=== PATIENT | male | born 1975 | race Caucasian/White ===

== ENCOUNTER 2018-07-21 13:10 | Inpatient (IN) | payer OTHER ==
[2018-07-21 13:46] VITALS: BMI 25.0
--- NOTE | 2018-07-21 16:39 | HP ---
CIWA Score Nausea/Vomitin-Mild Nausea/No Vomiting Muscle Tremors: 2 Anxiety: 2 Agitation: 2 Paroxysmal Sweats: 2 Orientation: 0-Oriented Tacttile Disturbances: 1-Very Mild Itch/Numbness Auditory Disturbances: 1-Very Mild Visual Disturbances: 1-Very Mild Sensitivity Headache: 2-Mild CIWA-Ar Total Score: 14 - Admission Criteria OASAS Guidelines: Admission for Medically Managed Detox: Requires at least one of the followin. CIWA greater than 12 2. Seizures within the past 24 hours 3. Delirium tremens within the past 24 hours 4. Hallucinations within the past 24 hours 5. Acute intervention needed for co occurring medical disorder 6. Acute intervention needed for co occurring psychiatric disorder 7. Severe withdrawal that cannot be handled at a lower level of care (continued vomiting, continued diarrhea, abnormal vital signs) requiring intravenous medication and/or fluids 8. Patient presents the following: Seizures, delirium tremens or hallucinations in the past 12 hours (Last seizure on 07/18/18) Admission Criteria Met: Admission criteria met Admission ROS [facility] Chief Complaint: WITHDRAWAL SYMPTOMS Allergies/Adverse Reactions: Allergies Allergy/AdvReac Type Severity Reaction Status Date / Time No Known Allergies Allergy Verified 07/21/18 16:34 History of Present Illness: 42 Y.O. MAN WITH A HISTORY BENZODIAZEPINE, PCP AND SPECIAL K DEPENDENCE IS HERE SEEKING DETOX. HE IS CURRENTLY ENROLLED AT [facility] AND STATES HE WAS LAST MEDICATED TODAY WITH 90MG OF METHADONE. HE IS PRESCRIBED DIAZEPAM BY DR. PHILIP MACKEY. 90 TABLETS OF 5MG DIAZEPAM WAS DISPENSED ON 06/25/18. THE PT. AGREED TO STOP RECEIVING THE PRESCRIPTION OF DIAZEPAM. THE PT. SIGNED CONSENT TO HAVE SHILO RAE CALLED DR. MACKEY TO MAKE HIM AWARE THAT HE IS BEING ADMITTED TO DETOX AND HAS AGREED TO STOP RECEIVING THE BENZO PRESCRIPTION. SHILO RAE CALLED DR. HUERTA' OFFICE AND LEFT A MESSAGE. PT. MADE A WRITTEN STATEMENT THAT WAS FAXED TO DR. MACKEY' OFFICE. Exam Limitations: No Limitations - Ebola screening Have you traveled outside of the country in the last 21 days: No Have you had contact with anyone from an Ebola affected area: No Have you been sick,other than usual withdrawal symptoms: No Do you have a fever: No - Review of Systems Constitutional: Chills, Loss of Appetite, Night Sweats, Changes in sleep, Unintentional Wgt. Loss EENT: reports: No Symptoms Reported Respiratory: reports: No Symptoms reported Cardiac: reports: Lightheadedness GI: reports: Poor Appetite, Abdominal cramping : reports: No Symptoms Reported Musculoskeletal: reports: Back Pain Integumentary: reports: Bruising (RIGHT ARM) Neuro: reports: Headache, Seizure (LAST SZ 07/18/18), Tremors Endocrine: reports: No Symptoms Reported Hematology: reports: No Symptoms Reported Psychiatric: reports: Orientated x3, Anxious, Depressed Other Systems: Reviewed and Negative Patient History - Patient Medical History Hx Anemia: No Hx Asthma: No Hx Chronic Obstructive Pulmonary Disease (COPD): Yes Hx Cancer: No Hx Cardiac Disorders: No Hx Congestive Heart Failure: No Hx Hypertension: No Hx Hypercholesterolemia: No Hx Pacemaker: No HX Cerebrovascular Accident: No Hx Seizures: Yes (LAST 07/18/18) Hx Dementia: No Hx Diabetes: No Hx Gastrointestinal Disorders: No Hx Liver Disease: No Hx Genitourinary Disorders: No Hx Sexually Transmitted Disorders: No Hx Renal Disease (ESRD): No Hx Thyroid Disease: No Hx Human Immunodeficiency Virus (HIV): No Hx Hepatitis C: Yes (TREATED) Hx Depression: Yes (ZOLOFT) Hx Suicide Attempt: No Hx Bipolar Disorder: No Hx Schizophrenia: No Other Medical History: ADHD, ANXIETY - Patient Surgical History Past Surgical History: Yes Hx Orthopedic Surgery: Yes (LEFT LEG FX REPAIR ) Other Surgical History: 03/01/18 Anesthesia Reaction: No - PPD History Previous Implant?: Yes Documented Results: Negative w/o proof PPD to be Administered?: Yes - Reproductive History Patient is a Female of Child Bearing Age (11 -55 yrs old): No - Smoking Cessation Smoking history: Current every day smoker Have you smoked in the past 12 months: Yes Aproximately how many cigarettes per day: 20 Initiated information on smoking cessation: Yes 'Breaking Loose' booklet given: 07/21/18 - Substance & Tx. History Hx Alcohol Use: No Hx Substance Use: Yes Substance Use Type: Tranquilizers Hx Substance Use Treatment: Yes (DETOX 05/2018 AT [place] ) - Substances Abused Alprazolam (Xanax) Route: Oral Frequency: Daily Amount used: 12MG Age of first use: 14 Date of Last Use: 07/20/18 Ketamine Route: Injection Frequency: 3-6 times per week Amount used: $30 DAILY Age of first use: 17 Date of Last Use: 07/21/18 Family Disease History - Family Disease History Family Disease History: CA: Mother (PANCREATIC CA; ), Respiratory: Sister (ASTHMA ), Other: Father (ETOH DEPENDENCE ) Admission Physical Exam [facility] - Vital Signs Vital Signs: Vital Signs - 24 hr 07/21/18 13:44 Temperature 97.4 F L Pulse Rate 99 H Respiratory 18 Rate Blood Pressure 142/81 - Physical General Appearance: Yes: Tremorous, Sweating, Anxious HEENTM: Yes: Hearing grossly Normal, Normal ENT Inspection, Normocephalic Respiratory: Yes: Chest Non-Tender, Lungs Clear, Normal Breath Sounds, No Respiratory Distress, No Accessory Muscle Use Neck: Yes: No masses,lesions,Nodules, Trachea in good position Breast: Yes: Breast Exam Deferred Cardiology: Yes: Regular Rhythm, Regular Rate Abdominal: Yes: Normal Bowel Sounds, Non Tender Genitourinary: Yes: Other (NO COMPLAINTS REPORTD) Back: Yes: Normal Inspection Musculoskeletal: Yes: Back pain Extremities: Yes: Tremors Neurological: Yes: Fully Oriented, Alert, Motor Strength 5/5, Normal Mood/Affect , Normal Response Integumentary: Yes: Normal Color, Dry, Warm Lymphatic: Yes: Within Normal Limits - Diagnostic (1) Opioid dependence on agonist therapy Current Visit: Yes Status: Chronic (2) Benzodiazepine dependence Current Visit: Yes Status: Chronic (3) PCP dependence Current Visit: Yes Status: Chronic (4) Nicotine dependence Current Visit: Yes Status: Chronic (5) History of seizure Current Visit: Yes Status: Acute Comment: D/T BENZODIAZEPINE WITHDRAWAL (6) Asthma Current Visit: Yes Status: Chronic Cleared for Admission [facility] - Detox or Rehab [facility] Level of Care: Medically Managed Detox Regimen/Protocol: Valium [facility] Breath Alcohol Content Breath Alcohol Content: 0 Urine Drug Screen - Results Drug Screen Negative: No Urine Drug Screen Results: MET-Methamphetamine, BZO-Benzodiazepines, MTD- Methadone
[2018-07-21] MEDS ORDERED: ACETAMINOPHEN 325 MG TABLET (FP) PO PRN (16:53)
[2018-07-21] MEDS ORDERED: P-EPHED 60MG/TRIPROLIDI 2.5MG TABLET PO PRN (16:53)
[2018-07-21] MEDS ORDERED: MAGNESIUM HYDROX 2400MG/30ML ORAL SUSPENSION 30 ML CUP PO PRN (16:53)
[2018-07-21] MEDS ORDERED: MAGNESIUM CITRATE 300 ML BOTTLE PO PRN (16:53)
[2018-07-21] MEDS ORDERED: LOPERAMIDE HCL 2 MG CAPSULE PO PRN (16:53)
[2018-07-21] MEDS ORDERED: MENTHOL/PHENOL 1 EACH UD MM PRN (16:53)
[2018-07-21] MEDS ORDERED: MAG HYDROX/AL HYDROX/SIMETH 30 ML UNIT-DOSE CUP PO PRN (16:53)
[2018-07-21] MEDS ORDERED: guaiFENesin/D-METHORPHAN HB 10 ML UNIT-DOSE CUPS PO PRN (16:53)
[2018-07-21] MEDS ORDERED: diazePAM 5 MG TABLET PO ONE (17:30)
[2018-07-21] MEDS ORDERED: MELATONIN 5 MG TABLETS PO PRN (22:00)
[2018-07-21] MEDS: THIAMINE HCL 100 MG TABLET (FP) PO SCH (22:36)
[2018-07-21] MEDS: diazePAM 5 MG TABLET PO SCH (22:36)
[2018-07-21] MEDS: hydrOXYzine PAMOATE 50 MG CAPSULE (FP) PO PRN (22:37)
[2018-07-22] MEDS: diazePAM 5 MG TABLET PO SCH ×3 (05:50→22:25)
[2018-07-22] MEDS ORDERED: METHADONE HCL 10 MG TABLET PO ONE (08:29)
[2018-07-22] MEDS ORDERED: METHADONE HCL 40 MG DISPERSABLE TABLET PO SCH (08:30)
[2018-07-22] MEDS ORDERED: METHADONE 80 MG, METHADONE 10 MG PO ONE (08:45)
[2018-07-22] MEDS ORDERED: METHADONE HCL 40 MG DISPERSABLE TABLET ONE (08:57)
[2018-07-22] MEDS ORDERED: METHADONE HCL 10 MG TABLET ONE (08:57)
--- NOTE | 2018-07-22 09:18 | CONSULT ---
[facility] Psychiatric Consult - Data Date of interview: 07/22/18 Admission source: [facility] Identifying data: Patient is a 42 year old male (currently ), without children, unemployed, domiciled, and is supported by public assistance. This is patient's first admission to detox at [facility]. Patient admitted to for benzodiazepine and ketamine dependence. Substance Abuse History: Smoking Cessation. Smoking history: Current every day smoker. Have you smoked in the past 12 months: Yes. Aproximately how many cigarettes per day: 20. Initiated information on smoking cessation: Yes. ' Breaking Loose' booklet given: 07/21/18. - Substance & Tx. History. Hx Alcohol Use: No. Hx Substance Use: Yes. Substance Use Type: Tranquilizers. Hx Substance Use Treatment: Yes (DETOX 05/2018 AT [facility] ). - Substances Abused. Alprazolam (Xanax). Route: Oral. Frequency: Daily. Amount used: 12MG. Age of first use: 14. Date of Last Use: 07/20/18. Ketamine. Route: Injection. Frequency: 3-6 times per week. Amount used: $30 DAILY. Age of first use: 17. Date of Last Use: 07/21/18 Medical History: Seizures, Left leg fx repair Psychiatric History: Patient's first psychiatric contact was as a child to address hyperactivity. Patient was diagnosed with ADHD and started on ritalin. He continued psychiatric treatment as a child and as an adult. In 2006 he was diagnosed with depression and anxiety. Patient reports two psychiatric hospitalization at [facility] (2015) and [facility] (2017). Both psychiatric hospitalizations were secondary to suicidial ideation althoug patient denies h/o suicide attempt. Current outpatient psychiatric care is provided in [place], [place]. He is prescribed Zoloft 100mg + Mirtzapine 30mg qhs + Adderral 30mg BID + Valium 5mg TID. Patient is currently on methadone maintenance of 90mg daily. Physical/Sexual Abuse/Trauma History: denies. Mental Status Exam - Mental Status Exam Alert and Oriented to: Time, Place, Person Cognitive Function: Good Patient Appearance: Well Groomed Mood: Hopeful Affect: Appropriate Patient Behavior: Appropriate, Cooperative Speech Pattern: Clear, Appropriate Voice Loudness: Normal Thought Process: Intact, Goal Oriented Thought Disorder: Not Present Hallucinations: Denies Suicidal Ideation: Denies Homicidal Ideation: Denies Insight/Judgement: Poor Sleep: Fair Appetite: Fair Muscle strength/Tone: Normal Gait/Station: Normal Psychiatric Findings - Problem List ([place] 1, 2,3) (1) ADHD Current Visit: No Status: Chronic (2) Nicotine dependence Current Visit: Yes Status: Chronic (3) Opioid dependence on agonist therapy Current Visit: Yes Status: Chronic (4) Substance induced mood disorder Current Visit: Yes Status: Acute (5) PCP dependence Current Visit: Yes Status: Acute (6) Sedative hypnotic or anxiolytic dependence Current Visit: Yes Status: Acute - Initial Treatment Plan Initial Treatment Plan: Psychoeducation provided. Detoxification in progress. Will order Zoloft 100mg + Remeron 30mg qhs. Benefits and side effects discussed. Verbal consent given.
[2018-07-22 10:14] LABS: HEMATOCRIT 39.7 % (35.4-49); MCH 30.7 pg (25.7-33.7); MCHC 35.3 g/dl (32.0-35.9); MEAN CELL VOLUME 86.9 fl (80-96); MEAN PLT VOLUME 7.4 fl (7.5-11.1); PLATELET COUNT 413 K/MM3 (134-434); RBC 4.57 M/mm3 (4.00-5.60); RDW 14.1 % (11.9-15.9); WHITE BLOOD COUNT 5.9 K/mm3 (4.0-10.0)
[2018-07-22] MEDS: PRENATAL VITAMINS W/ FOLIC ACID TABLET (FP) PO SCH (10:57)
[2018-07-22] MEDS: SERTRALINE HCL 50 MG TABLET (FP) PO SCH (10:58)
[2018-07-22] MEDS: NICOTINE 21 MG/24 HOURS TOPICAL PATCH TD SCH (10:58)
[2018-07-22] MEDS: diazePAM 5 MG TABLET PO PRN (10:59)
[2018-07-22 11:30] LABS: ALK PHOS 232 U/L (45-117); ANION GAP 9 MMOL/L (8-16); BILIRUBIN,TOTAL 0.2 mg/dL (0.2-1); BLOOD UREA NITROGEN 9 mg/dL (7-18); CALCIUM 8.3 mg/dL (8.5-10.1); CHLORIDE 103 mmol/L (98-107); CO2 29 mmol/L (21-32); CREATININE 0.7 mg/dL (0.55-1.3); GLUCOSE,RANDOM 104 mg/dL (74-106); POTASSIUM 4.1 mmol/L (3.5-5.1); SGOT/AST 8 U/L (15-37); SGPT/ALT 14 U/L (13-61); SODIUM 141 mmol/L (136-145); TOT PROT 6.5 g/dl (6.4-8.2)
--- NOTE | 2018-07-22 12:31 | PN ---
S CIWA - CIWA Score Nausea/Vomitin Muscle Tremors: 2 Anxiety: 2 Agitation: 2 Paroxysmal Sweats: 3 Orientation: 0-Oriented Tacttile Disturbances: 2-Mild Itch/Numbness/Burn Auditory Disturbances: 0-None Visual Disturbances: 0-None Headache: 0-None Present CIWA-Ar Total Score: 13 [facility] Progress Note (SOAP) Subjective: interrupted sleep, sweats, body aches Objective: 07/22/18 12:26 Vital Signs Temperature 97.5 F L 07/22/18 11:18 Pulse Rate 100 H 07/22/18 11:18 Respiratory Rate 18 07/22/18 11:18 Blood Pressure 131/76 07/22/18 11:18 O2 Sat by Pulse Oximetry (%) Vital Signs Temperature 97.5 F L 07/22/18 11:18 Pulse Rate 100 H 07/22/18 11:18 Respiratory Rate 18 07/22/18 11:18 Blood Pressure 131/76 07/22/18 11:18 O2 Sat by Pulse Oximetry (%) Laboratory Tests 07/22/18 07/22/18 07:00 08:00 WBC 5.9 RBC 4.57 Hgb 14.0 Hct 39.7 MCV 86.9 MCH 30.7 MCHC 35.3 RDW 14.1 Plt Count 413 MPV 7.4 L Sodium 141 Potassium 4.1 Chloride 103 Carbon Dioxide 29 Anion Gap 9 BUN 9 Creatinine 0.7 Creat Clearance w eGFR > 60 Random Glucose 104 Calcium 8.3 L Total Bilirubin 0.2 AST 8 L ALT 14 Alkaline Phosphatase 232 H Total Protein 6.5 Albumin 3.0 L pt aox3 in nad lying in bed Assessment: 07/22/18 12:27 withdrawal sx's Plan: cont. detox increase fluids motrin prn f/up pending labs
[2018-07-22] MEDS: NICOTINE POLACRILEX 2 MG GUM BC PRN ×2 (13:29→22:25)
[2018-07-22] MEDS: IBUPROFEN 400 MG TABLET (FP) PO PRN (13:30)
[2018-07-22] MEDS: BACITRACIN 0.9 GM PACKET TP SCH (22:24)
[2018-07-22] MEDS: THIAMINE HCL 100 MG TABLET (FP) PO SCH (22:25)
[2018-07-22] MEDS: MIRTAZAPINE 30 MG TABLET (FP) PO SCH (22:25)
[2018-07-23] MEDS ORDERED: METHADONE HCL 40 MG DISPERSABLE TABLET ONE (05:54)
[2018-07-23] MEDS ORDERED: METHADONE HCL 10 MG TABLET ONE (05:54)
[2018-07-23] MEDS: METHADONE 80 MG, METHADONE 10 MG PO SCH (06:15)
[2018-07-23] MEDS: diazePAM 5 MG TABLET PO PRN (06:18)
[2018-07-23] MEDS: PRENATAL VITAMINS W/ FOLIC ACID TABLET (FP) PO SCH (09:25)
[2018-07-23] MEDS: BACITRACIN 0.9 GM PACKET TP SCH ×2 (09:25→22:13)
[2018-07-23] MEDS: SERTRALINE HCL 50 MG TABLET (FP) PO SCH (09:26)
[2018-07-23] MEDS: diazePAM 5 MG TABLET PO SCH ×2 (09:26→22:13)
[2018-07-23] MEDS: NICOTINE 21 MG/24 HOURS TOPICAL PATCH TD SCH (09:26)
--- NOTE | 2018-07-23 11:11 | PN ---
S COWS - Scale Resting Pulse: 0= [place] 80 or Below Sweatin= Chills/Flushing Restless Observation: 1= Difficult to Sit Still Pupil Size: 0= Normal to Room Light Bone or Joint Aches: 2= Severe Diffuse Aches Runny Nose/ Eye Tearin= Nasal Congestion GI Upset > 30mins: 2= Nausea/Diarrhea Tremor Observation of Outstretched Hands: 1= Tremor [place], Not Seen Yawning Observation: 1= 1-2x During Session Anxiety or Irritability: 2=Irritable/Anxious Goose Flesh Skin: 0=Smooth Skin COWS Score: 11 [facility] Progress Note (SOAP) Subjective: Back/shoulder pain, anxiety Objective: 07/23/18 11:09 Vital Signs - 8 hr 07/23/18 07/23/18 07/23/18 03:30 06:37 09:12 Temperature 98.2 F 98.2 F Pulse Rate 71 73 Respiratory 18 18 16 Rate Blood Pressure 134/71 124/86 Laboratory Last Values WBC 5.9 K/mm3 (4.0-10.0) 07/22/18 07:00 RBC 4.57 M/mm3 (4.00-5.60) 07/22/18 07:00 Hgb 14.0 GM/dL (11.7-16.9) 07/22/18 07:00 Hct 39.7 % (35.4-49) 07/22/18 07:00 MCV 86.9 fl (80-96) 07/22/18 07:00 MCH 30.7 pg (25.7-33.7) 07/22/18 07:00 MCHC 35.3 g/dl (32.0-35.9) 07/22/18 07:00 RDW 14.1 % (11.9-15.9) 07/22/18 07:00 Plt Count 413 K/MM3 (134-434) 07/22/18 07:00 MPV 7.4 fl (7.5-11.1) L 07/22/18 07:00 Sodium 141 mmol/L (136-145) 07/22/18 08:00 Potassium 4.1 mmol/L (3.5-5.1) 07/22/18 08:00 Chloride 103 mmol/L (98-107) 07/22/18 08:00 Carbon Dioxide 29 mmol/L (21-32) 07/22/18 08:00 Anion Gap 9 MMOL/L (8-16) 07/22/18 08:00 BUN 9 mg/dL (7-18) 07/22/18 08:00 Creatinine 0.7 mg/dL (0.55-1.3) 07/22/18 08:00 Creat Clearance w eGFR > 60 (>60) 07/22/18 08:00 Random Glucose 104 mg/dL (74-106) 07/22/18 08:00 Calcium 8.3 mg/dL (8.5-10.1) L 07/22/18 08:00 Total Bilirubin 0.2 mg/dL (0.2-1) 07/22/18 08:00 AST 8 U/L (15-37) L 07/22/18 08:00 ALT 14 U/L (13-61) 07/22/18 08:00 Alkaline Phosphatase 232 U/L (45-117) H 07/22/18 08:00 Total Protein 6.5 g/dl (6.4-8.2) 07/22/18 08:00 Albumin 3.0 g/dl (3.4-5.0) L 07/22/18 08:00 RPR Titer Nonreactive (NONREACTIVE) 07/22/18 07:00 HIV 1&2 Antibody Screen Negative 07/22/18 07:00 HIV P24 Antigen Negative 07/22/18 07:00 Labs noted RFA wound following fall after suffering seizure as stated by patient Assessment: 07/23/18 11:10 Withdrawal sx Plan: Continue detox Bacitracin ointment to RFA wound
--- NOTE | 2018-07-23 21:15 | EKG ---
Test Reason : Blood Pressure : / mmHG Vent. Rate : 079 BPM Atrial Rate : 079 BPM P-R Int : 114 ms QRS Dur : 096 ms QT Int : 376 ms P-R-T Axes : 034 077 048 degrees QTc Int : 431 ms NORMAL SINUS RHYTHM NORMAL ECG NO PREVIOUS ECGS AVAILABLE Confirmed by SHAILESH BURR, TAMERA ([id number]) on 07/23/2018 9:15:28 PM Referred By: Confirmed By:TAMERA CASH MD
[2018-07-23] MEDS: THIAMINE HCL 100 MG TABLET (FP) PO SCH (22:13)
[2018-07-23] MEDS: MIRTAZAPINE 30 MG TABLET (FP) PO SCH (22:13)
[2018-07-23] MEDS: NICOTINE POLACRILEX 2 MG GUM BC PRN (22:14)
[2018-07-24] MEDS ORDERED: METHADONE HCL 40 MG DISPERSABLE TABLET ONE (05:02)
[2018-07-24] MEDS ORDERED: METHADONE HCL 10 MG TABLET ONE (05:03)
[2018-07-24] MEDS: METHADONE 80 MG, METHADONE 10 MG PO SCH (06:20)
[2018-07-24] MEDS: diazePAM 5 MG TABLET PO PRN (06:21)
[2018-07-24] MEDS: SERTRALINE HCL 50 MG TABLET (FP) PO SCH (10:27)
[2018-07-24] MEDS: diazePAM 5 MG TABLET PO SCH ×2 (10:27→22:21)
[2018-07-24] MEDS: NICOTINE 21 MG/24 HOURS TOPICAL PATCH TD SCH (10:27)
[2018-07-24] MEDS: PRENATAL VITAMINS W/ FOLIC ACID TABLET (FP) PO SCH (10:27)
[2018-07-24] MEDS: BACITRACIN 0.9 GM PACKET TP SCH ×2 (10:27→22:22)
[2018-07-24] MEDS: IBUPROFEN 400 MG TABLET (FP) PO PRN (10:28)
[2018-07-24] MEDS: NICOTINE POLACRILEX 2 MG GUM BC PRN ×3 (10:28→22:22)
--- NOTE | 2018-07-24 11:56 | PN ---
[facility] Progress Note (SOAP) Subjective: feeling better sleep better no tremor less sweat social with peers in day room discuss aftercare Objective: 07/24/18 11:54 Vital Signs Temperature 98.1 F 07/24/18 09:44 Pulse Rate 85 07/24/18 09:44 Respiratory Rate 18 18 09:44 Blood Pressure 133/83 07/24/18 09:44 O2 Sat by Pulse Oximetry (%) Laboratory Last Values WBC 5.9 K/mm3 (4.0-10.0) 07/22/18 07:00 RBC 4.57 M/mm3 (4.00-5.60) 07/22/18 07:00 Hgb 14.0 GM/dL (11.7-16.9) 07/22/18 07:00 Hct 39.7 % (35.4-49) 07/22/18 07:00 MCV 86.9 fl (80-96) 07/22/18 07:00 MCH 30.7 pg (25.7-33.7) 07/22/18 07:00 MCHC 35.3 g/dl (32.0-35.9) 07/22/18 07:00 RDW 14.1 % (11.9-15.9) 07/22/18 07:00 Plt Count 413 K/MM3 (134-434) 07/22/18 07:00 MPV 7.4 fl (7.5-11.1) L 07/22/18 07:00 Sodium 141 mmol/L (136-145) 07/22/18 08:00 Potassium 4.1 mmol/L (3.5-5.1) 07/22/18 08:00 Chloride 103 mmol/L (98-107) 07/22/18 08:00 Carbon Dioxide 29 mmol/L (21-32) 07/22/18 08:00 Anion Gap 9 MMOL/L (8-16) 07/22/18 08:00 BUN 9 mg/dL (7-18) 07/22/18 08:00 Creatinine 0.7 mg/dL (0.55-1.3) 07/22/18 08:00 Creat Clearance w eGFR > 60 (>60) 07/22/18 08:00 Random Glucose 104 mg/dL (74-106) 07/22/18 08:00 Calcium 8.3 mg/dL (8.5-10.1) L 07/22/18 08:00 Total Bilirubin 0.2 mg/dL (0.2-1) 07/22/18 08:00 AST 8 U/L (15-37) L 07/22/18 08:00 ALT 14 U/L (13-61) 07/22/18 08:00 Alkaline Phosphatase 232 U/L (45-117) H 07/22/18 08:00 Total Protein 6.5 g/dl (6.4-8.2) 07/22/18 08:00 Albumin 3.0 g/dl (3.4-5.0) L 07/22/18 08:00 RPR Titer Nonreactive (NONREACTIVE) 07/22/18 07:00 HIV 1&2 Antibody Screen Negative 07/22/18 07:00 HIV P24 Antigen Negative 07/22/18 07:00 lab noted Assessment: 07/24/18 11:56 mild withdrawal sx Plan: medically supervised detox
[2018-07-24] MEDS: THIAMINE HCL 100 MG TABLET (FP) PO SCH (22:21)
[2018-07-24] MEDS: MIRTAZAPINE 30 MG TABLET (FP) PO SCH (22:21)
[2018-07-25] MEDS ORDERED: METHADONE HCL 10 MG TABLET ONE (06:04)
[2018-07-25] MEDS: hydrOXYzine PAMOATE 50 MG CAPSULE (FP) PO PRN (06:04)
[2018-07-25] MEDS ORDERED: METHADONE HCL 40 MG DISPERSABLE TABLET ONE (06:04)
[2018-07-25] MEDS: METHADONE 80 MG, METHADONE 10 MG PO SCH (06:05)
--- NOTE | 2018-07-25 08:45 | DS ---
[facility] Detox Discharge Summary Admission Date: 07/21/18 Discharge Date: 07/25/18 - History Present History: Opioid Dependence, Sedative Dependence, Pcp Dependence - Physical Exam Results Vital Signs: Vital Signs Temperature 97 F L 07/25/18 07:59 Pulse Rate 67 07/25/18 07:59 Respiratory Rate 18 07/25/18 07:59 Blood Pressure 113/79 07/25/18 07:59 O2 Sat by Pulse Oximetry (%) - Treatment Hospital Course: Detox Protocol Followed, Detoxed Safely, Responded well, Discharged Condition Good, Rehab Referral Accepted - Medication Discharge Medications: Ambulatory Orders Dextroamphetamine/Amphetamine [Adderall Xr 30 mg Capsule] 30 mg PO BID 07/21/18 Mirtazapine [Remeron -] 45 mg PO DAILY 07/21/18 Sertraline HCl [Zoloft] 100 mg PO DAILY 07/21/18 - Diagnosis (1) History of seizure Current Visit: Yes Status: Acute (2) Substance induced mood disorder Current Visit: Yes Status: Acute (3) Asthma Current Visit: Yes Status: Chronic Qualifiers: Asthma severity: mild Asthma persistence: intermittent (4) Benzodiazepine dependence Current Visit: Yes Status: Chronic (5) Nicotine dependence Current Visit: Yes Status: Chronic Qualifiers: Nicotine product type: cigarettes Substance use status: uncomplicated Qualified Code(s): F17.210 - Nicotine dependence, cigarettes, uncomplicated (6) Opioid dependence on agonist therapy Current Visit: Yes Status: Chronic (7) PCP dependence Current Visit: Yes Status: Chronic (8) Sedative hypnotic or anxiolytic dependence Current Visit: Yes Status: Chronic (9) ADHD Current Visit: No Status: Chronic - AMA Did Patient Leave Against Medical Advice: No (referred to his MMTP program)
[2018-07-25] MEDS ORDERED: diazePAM 5 MG TABLET PO SCH (10:00)
[2018-07-25] MEDS: PRENATAL VITAMINS W/ FOLIC ACID TABLET (FP) PO SCH (10:19)
[2018-07-25] MEDS: SERTRALINE HCL 50 MG TABLET (FP) PO SCH (10:19)
[2018-07-25] MEDS: BACITRACIN 0.9 GM PACKET TP SCH (10:19)
[2018-07-25] MEDS: NICOTINE 21 MG/24 HOURS TOPICAL PATCH TD SCH (10:19)
[2018-07-25] MEDS: NICOTINE POLACRILEX 2 MG GUM BC PRN (10:20)
[2018-07-25 14:25] VITALS: BP 131/69; PULSE 91; TEMP 99.7
== END 2018-07-25 14:40 | disposition home or self-care (01) | DRG 773 ==
LOC: YASAS 13:10 → Y6N 16:49
PROC: HZ2ZZZZ Detoxification Services for Substance Abuse Treatment (ICD-10-PCS; principal; 2018-07-21)
DX: F13.20 Sedative, hypnotic or anxiolytic dependence, uncomplicated (principal); F16.20 Hallucinogen dependence, uncomplicated; F11.20 Opioid dependence, uncomplicated; F17.210 Nicotine dependence, cigarettes, uncomplicated; F19.24 Other psychoactive substance dependence with psychoactive substance-induced mood disorder; F41.9 Anxiety disorder, unspecified; F32.9 Major depressive disorder, single episode, unspecified; F90.9 Attention-deficit hyperactivity disorder, unspecified type; J45.20 Mild intermittent asthma, uncomplicated; J44.9 Chronic obstructive pulmonary disease, unspecified; R56.9 Unspecified convulsions; Z86.19 Personal history of other infectious and parasitic diseases; Z86.69 Personal history of other diseases of the nervous system and sense organs
CPT/HCPCS: 36415; 80053; 85027; 86593; 87389; 93005; 93010